=== PATIENT | female | born 1960 | race Caucasian/White ===

== ENCOUNTER → 2017-07-28 | Outpatient (CLI) | payer BC ==
[2014-11-25 10:21] VITALS: BP 124/62
--- NOTE | 2017-07-30 08:29 | MG ---
HISTORY: SCREENING Comparison: Multiple priors dating back to May 07, 2011 FINDINGS: Bilateral CC and MLO projections of the right and left breast were obtained. Scattered fibroglandula r tissue is seen to be present without significant interval change. No suspicious architectural dist ortion, mass or clustered microcalcifications can be observed to suggest malignancy. No skin thicken ing or nipple retraction is appreciated. No pathological lymphadenopathy can be identified. Benign- appearing calcifications are noted within the right and left breast. IMPRESSION: NO RADIOGRAPHIC EVIDENCE OF MALIGNANCY. ACR CATEGORY 2 - benign findings. FOLLOW-UP EXAM 1 YEAR. Diagnostic CAD was utilized and reviewed. * 0 (ZERO) - ASSESSMENT INCOMPLETE; ADDITIONAL IMAGING IS NEEDED. * 1/1 (ONE) - NEGATIVE. * 2/II (TWO) - BENIGN FINDINGS. * 3/III (THREE) - PROBABLY BENIGN FINDING; SHORT INTERVAL FOLLOW-UP SUGGESTED. * 4/IV (FOUR) - SUSPICIOUS ABNORMALITY; BIOPSY SHOULD BE CONSIDERED. * 5/V - HIGHLY SUSPICIOUS OF MALIGNANCY; BIOPSY SHOULD BE PERFORMED. A NEGATIVE X-RAY REPORT SHOULD NOT DELAY BIOPSY IF A DOMINANT OR CLINICALLY SUSPICIOUS MASS IS PRESENT; 4 TO 8 PERCENT OF CANCERS ARE NOT IDENTIFIED BY X-RAY. A NEGA TIVE REPORT MAY REINFORCE THE CLINICAL IMPRESSION. ADENOSIS AND DENSE BREASTS MAY OBSCURE AN UNDERLY ING NEOPLASM. Reported By:
== END ==
LOC: RAD 10:14
PROVIDERS: ATTEND Specialist
DX: Z12.31 Encounter for screening mammogram for malignant neoplasm of breast (principal)
CPT/HCPCS: 77067

== ENCOUNTER 2019-06-30 10:02 | Observation (INO) ==
[2019-06-30 10:19] VITALS: BMI 45.3
[2019-06-30] MEDS ORDERED: ASPIRIN PO ONE (10:50)
[2019-06-30] MEDS ORDERED: ASPIRIN 81 MG CHEWTAB ONE (10:53)
[2019-06-30] MEDS: ASPIRIN 81 MG CHEWTAB PO ONE (10:56)
--- NOTE | 2019-06-30 11:00 | DR.GENAD ---
HPI Time Seen Time Seen by Provider: 06/30/19 10:56 PCP Primary Care Physician: felton HPI Comment HPI Comment: PATIENT IS 58YR OLD WHITE FENALE IN THE EMERGENCY ROOM WITH CHEST PAIN. PAIN STARTED LAST NIGHT. PAIN ISSHARP, LAST NIGHT 9/10, NOW SORENESS AND RADIATED TO LEFT SHOULDER. PAIN WAS ASSOCIATED WITH SOB AND WEAKNESS. NO FEVER OR COUGH. PATIENT TOOK TOMS BUT NO RELIEF. PAIN SPONTANOUSLY EASE OFF WHEN SHE WENT TO SEE PCP. SHE WAS SENT TO ER FOR FURTHER EVALUATION. PATIENT HAVE HISTORY OF DM, HTN AND DYSLIPIDEMIA. SHE IS ALSO HAVING DYSURIA AND URINARY FRQUENCY. Complaint/Symptoms Chief Complaint Doctors Comments: CHEST PAIN. Chief Complaint:: patient stated she has been having left upper chest pain since last night. patient stated the pain was worse last night than today. went to pcp this morning was told to come here. also pt stated she thinks she has a uti Nurses notes reviewed Nurses Notes Review: Yes Source History Provided: Patient and Family Member Mode of Arrival Mode of Arrival: Ambulatory Timing Onset of Chief Complaint: 06/29/19 Came on: Suddenly Duration Duration: Intermittent Duration: Days Severity Severity: Moderate Modifying Factors Worsens:: MOVEMENT Improves:: REST Associated Signs and Symptoms Associated Signs and Symptoms: DYSURIA, URINARY FREQUENCY. Other History Other History: DIABETES. PMH PMH Past Medical History: Yes Past Medical History: Anxiety, Arthritis, Asthma, Depression, Diabetes, Dyslipidemia, GERD and Hypertension Past Surgical History: Yes Surgical History: Tonsillectomy Family History History of Family Medical Conditions: Yes Family Medical History: Diabetes Mellitus, Cancer, [place] and Hypertension Social History Does patient currently use any type of tobacco product: No Have you used tobacco products in the last 12 months: No Type of Tobacco Use: None Does any household member use tobacco: No Alcohol Use: None Do you use any recreational Drugs:: No Lives With: Family Lives Where: Home infectious screening In the last 2 months have you had wt loss of >10#?: NO Have you had fever, night sweats or hemotysis?: No Have you traveled outside the country in the last 6 months?: No Isolation: Standard ROS Review of Systems Constitutional: See HPI, Weakness and Fatigue; negative Chills and Fever Eyes: No Symptoms Reported and See HPI; negative Eye Pain, Blurred Vision, Discharge, Photophobia and Diplopia ENTM: No Symptoms Reported and See HPI; negative Ear Pain, Nose Discharge, Nose Congestion and Throat Pain Respiratoy: See HPI and Short of Breath; negative Moist Cough and Wheezing Cardiovascular: See HPI and Chest Pain; negative Edema and Palpitations Gastrointestinal/Abdominal: No Symptoms Reported and See HPI; negative Abdominal Pain, Constipation, Diarrhea, Nausea and Vomiting Genitourinary: See HPI and Frequency; negative Hematuria and Pain Neurological: See HPI and Weakness; negative Headache and Dizziness Musculoskeletal: No Symptoms Reported and See HPI; negative Back Pain and Muscle Pain Integumentary: No Symptoms Reported and See HPI; negative Change in Color, Rash and Juandice Hematologic/Lymphatic: No Symptoms Reported and See HPI; negative Easy Bleeding, Easy Bruising and Swollen Glands Endocrine: No Symptoms Reported and See HPI; negative Increased Thirst, Increased Urine and Decreased Appetite Psychiatric: No Symptoms Reported and See HPI All Other Systems: Reviewed and Negative PE Vital Signs Vitals: Temperature 98.7 F Pulse Rate 94 Respiratory Rate 18 Blood Pressure [Left Arm] 124/62 Blood Pressure [Right Arm] 112/52 Blood Pressure 138/62 O2 Sat by Pulse Oximetry 97 General Limitations: No Limitations General Appearance: Alert and In No Apparent Distress Head Head Exam: Normal Inspection, Atraumatic and Normocephalic Eyes Eye exam: Normal Appearance, PERRL and EOMI; negative Scleral Icterus and Conjunctival Injection ENT ENT Exam: Normal Exam, Normal Oropharynx, Normal External Ear Exam and TM's Normal Bilaterally External Ear Exam: Normal External Inspection; negative Mastoid Tenderness, Pain with Movement and External Tenderness TM/Canal Exam: Bilateral: Normal Nose Exam: Normal Nose Exam; negative Sinus Tenderness, Nasal Deviation and Septal Hematoma Mouth Exam: Normal Inspection; negative Lip Swelling and Tongue Swelling Throat Exam: Normal Inspection; negative Tonsillar Erythema, Tonsillomegaly and Tonsillar Exudate Neck Neck Exam: Normal Inspection and Trachea Midline; negative Tenderness and Lymphadenopathy Chest Chest Inspection: Normal Inspection and Symmetric Chest Wall Rise; negative Tenderness Respiratory Respiratory Exam: Normal Lung Sounds Bilat; negative Accessory Muscle Use, Chest Wall Tenderness and Respiratory Distress Respiratory Exam: Bilateral: Rhonchi and Lower: Rhonchi Cardiovascular Cardiovascular Exam: Regular Rate, Normal Rhythm and Normal Heart Sounds; negative Systolic Murmur and Diastolic Murmur Abdominal Exam Abdominal Exam: Normal Inspection, Normal Bowel Sounds and Soft; negative Tenderness Extremities Extremities Exam: Normal Inspection and Normal Capillary Refill; negative Tenderness, Edema and Calf Tenderness Back Back Exam: Normal Inspection; negative Tenderness, (R) CVA Tenderness, (L) CVA Tenderness, Paraspinal Tenderness and Vertebral Tenderness Neurologic Neurological Exam: Alert, Oriented X3 and CN II-XII Intact; negative Motor Sensory Deficit Psychiatric Psychiatric Exam: Normal Affect and Normal Mood Skin Skin Exam: Warm, Dry, Intact and Normal Color MDM Additional Information Additional Information Obtained From: Family Differential Diagnosis Differential Diagnosis: CHEST PAIN, GA, ANGINA, PNEUMONIA, PNEUMOTHORAX\, UTI. COURSE Treatment Treatment: SEE ORDERS. ASA 324MG CHEWABLE TABS PO IN ED. Consultation Consultation Comments: PATIENT DISCUSS WITH DR. MURILLO THROUGH HIS NURSE. HE WILL ADMIT PATIENT. ADMIT ORDERS, DONE. Education/Counseling Education/Counseling: Patient and Family Educated On: Diagnosis ROR Labs Reviewed Laboratory Results Reviewed?: Yes Result Diagrams: 06/30/19 11:02 06/30/19 11:02 Laboratory: WBC 5.7 X10^3/uL (3.6-10.0) 06/30/19 11:02 RBC 4.39 X10^6/uL (3.5-5.4) 06/30/19 11:02 Hgb 12.5 g/dL (12.0-16.0) 06/30/19 11:02 Hct 37.8 % (36.0-47.0) 06/30/19 11:02 MCV 86.2 fL (80.0-100.0) 06/30/19 11:02 MCH 28.6 pg (27.0-34.0) 06/30/19 11:02 MCHC 33.1 g/dL (33.0-35.0) 06/30/19 11:02 RDW 16.6 % (11.6-16.5) H 06/30/19 11:02 Plt Count 314 X10^3/uL (150.0-450.0) 06/30/19 11:02 MPV 9.7 fL (7.4-11.0) 06/30/19 11:02 Neut % (Auto) 63.5 % (42.0-75.0) 06/30/19 11:02 Lymph % (Auto) 30.2 % (21.0-51.0) 06/30/19 11:02 R[place] % (Auto) 3.9 % (0.0-13.0) 06/30/19 11:02 Eos % (Auto) 1.7 % (0.9-2.9) 06/30/19 11:02 Baso % (Auto) 0.7 % (0.2-1.0) 06/30/19 11:02 Neut # (Auto) 3.6 x10^3/uL (2.2-4.8) 06/30/19 11:02 Lymph # (Auto) 1.7 X10^3/uL (1.3-2.9) 06/30/19 11:02 R[place]els # (Auto) 0.2 x10^3/uL (0.3-0.8) L 06/30/19 11:02 Eos # (Auto) 0.1 x10^3/uL (0.0-0.2) 06/30/19 11:02 Baso # (Auto) 0.0 X10^3/uL (0.0-0.1) 06/30/19 11:02 Absolute Nucleated RBC 0.3 /100WBC 06/30/19 11:02 PT 13.9 SECONDS (11.8-14.3) 06/30/19 11:02 INR Target Range - 06/30/19 11:02 INR 1.11 (0.8-1.3) 06/30/19 11:02 APTT 29.4 SECONDS (22.9-36.5) 06/30/19 11:02 PTT Comment - 06/30/19 11:02 D-Dimer < 100 ng/mL (0-400) 06/30/19 11:02 Sodium 137 mmol/L (136-145) 06/30/19 11:02 Corrected Sodium 140 mmol/L (136-145) 06/30/19 11:02 Potassium 4.2 mmol/L (3.5-5.1) 06/30/19 11:02 Chloride 101 mmol/L (98-107) 06/30/19 11:02 Carbon Dioxide 28.6 mmol/L (21-32) 06/30/19 11:02 BUN 18 mg/dL (7-18) 06/30/19 11:02 Creatinine 0.71 mg/dL (0.55-1.02) 06/30/19 11:02 Est GFR (MDRD) Af Amer > 60 (>60) 06/30/19 11:02 Est GFR (MDRD) Non-Af > 60 (>60) 06/30/19 11:02 Glucose 217 mg/dL (65-99) H 06/30/19 11:02 Calcium 8.9 mg/dL (8.5-10.1) 06/30/19 11:02 Corrected Calcium TNP 06/30/19 11:02 Magnesium 1.9 mg/dL (1.7-2.9) 06/30/19 11:02 Total Bilirubin 0.60 mg/dL (0.2-1.0) 06/30/19 11:02 AST 15 Units/L (15-37) 06/30/19 11:02 ALT 17 Units/L (12-78) 06/30/19 11:02 Alkaline Phosphatase 62 Units/L (46-116) 06/30/19 11:02 Creatine Kinase 136 Units/L (26-192) 06/30/19 11:02 CK-MB (CK-2) 1.5 ng/mL (0-4.0) 06/30/19 11:02 CK/CKMB % Calc 1.1 % (<4) 06/30/19 11:02 Troponin I < 0.02 ng/mL (0-1.5) 06/30/19 11:02 Total Protein 7.3 g/dL (6.4-8.2) 06/30/19 11:02 Albumin 3.8 g/dL (3.4-5.0) 06/30/19 11:02 Globulin 3.5 g/dL (2.5-4.5) 06/30/19 11:02 Albumin/Globulin Ratio 1.1 Ratio (1.1-2.1) 06/30/19 11:02 Specimen Type Clean catch urine 06/30/19 11:33 Urine Color Straw (YELLOW) 06/30/19 11:33 Urine Appearance Clear (CLEAR) 06/30/19 11:33 Urine pH 5.0 (5.0 - 8.0) 06/30/19 11:33 Ur Specific [place] 1.005 (1.000-1.030) 06/30/19 11:33 Urine Protein Negative (NEGATIVE) 06/30/19 11:33 Urine Glucose (UA) Negative (NEGATIVE) 06/30/19 11:33 Urine Ketones Negative (NEGATIVE) 06/30/19 11:33 Urine Occult Blood Negative (NEGATIVE) 06/30/19 11:33 Urine Nitrite Negative (NEGATIVE) 06/30/19 11:33 Urine Bilirubin Negative (NEGATIVE) 06/30/19 11:33 Urine Urobilinogen Normal (NORMAL) 06/30/19 11:33 Ur Leukocyte Esterase Negative (NEGATIVE) 06/30/19 11:33 Acetone, Semi-Quant Negative (NEGATIVE) 06/30/19 11:02 XRAY XRAY Interpreted by: Radiologist XRAY Findings: REPORT NOTED AND DISCUSSED WITH PATIENT AND . EKG Rate: 90 [place]: Normal Rhythm: NSR Block: None Hypertrophy: None (LOW VOLTAGE PRECORDIAL LEADS.) ST: Nonsp Opioid Opioid Risk Tool Age (Darryl box if 16-45): No Total: 0 Total Score Risk Category: Low Risk Copyright: Winter LR predicting aberrant behaviors Diagnosis Discharge Problem: Acute hyperglycemia, Cystitis Chest pain Qualifiers: Chest pain type: precordial pain Qualified Code(s): R07.2 - Precordial pain Instructions Forms: Excuse From Work
[2019-06-30 11:09] LABS: BASOPHILS % (AUTO) 0.7 % (0.2-1.0); EOSINOPHILS # (AUTO) 0.1 x10^3/uL (0.0-0.2); EOSINOPHILS % (AUTO) 1.7 % (0.9-2.9); HEMATOCRIT 37.8 % (36.0-47.0); HEMOGLOBIN 12.5 g/dL (12.0-16.0); LYMPHOCYTES # (AUTO) 1.7 X10^3/uL (1.3-2.9); LYMPHOCYTES % (AUTO) 30.2 % (21.0-51.0); MEAN CORPUSCULAR HEMOGLOBIN 28.6 pg (27.0-34.0); MEAN CORPUSCULAR HGB CONC 33.1 g/dL (33.0-35.0); MEAN CORPUSCULAR VOLUME 86.2 fL (80.0-100.0); MEAN PLATELET VOLUME 9.7 fL (7.4-11.0); MONOCYTES # (AUTO) 0.2 x10^3/uL (0.3-0.8); MONOCYTES % (AUTO) 3.9 % (0.0-13.0); NEUTROPHILS # (AUTO) 3.6 x10^3/uL (2.2-4.8); NEUTROPHILS % (AUTO) 63.5 % (42.0-75.0); PLATELET COUNT 314 X10^3/uL (150.0-450.0); RED BLOOD COUNT 4.39 X10^6/uL (3.5-5.4); RED CELL DISTRIBUTION WIDTH 16.6 % (11.6-16.5); WHITE BLOOD COUNT 5.7 X10^3/uL (3.6-10.0)
--- NOTE | 2019-06-30 11:16 | RAD ---
History: Chest pain Study: Portable AP chest Comparison: November 23, 2014 Findings: The lungs are clear and the heart and mediastinum are unremarkable. There is no edema or effusion or congestion. No significant bony abnormality is demonstrated. Impression: No evidence for acute cardiopulmonary disease Reported By:
[2019-06-30 11:27] LABS: BLOOD UREA NITROGEN 18 mg/dL (7-18); CALCIUM 8.9 mg/dL (8.5-10.1); CARBON DIOXIDE 28.6 mmol/L (21-32); CHLORIDE 101 mmol/L (98-107); COR NA(FOR HYPERGLY) 140 mmol/L (136-145); CREATININE 0.71 mg/dL (0.55-1.02); SODIUM 137 mmol/L (136-145); TROPONIN I < 0.02 ng/mL (0-1.5); eGFR NON BLACK RACES > 60 (>60)
[2019-06-30 11:32] LABS: ALANINE AMINOTRANSFERASE 17 Units/L (12-78); ALBUMIN 3.8 g/dL (3.4-5.0); ALKALINE PHOSPHATASE 62 Units/L (46-116); ASPARTATE AMINO TRANSFERASE 15 Units/L (15-37); CKMB % 1.1 % (<4); CREATINE KINASE 136 Units/L (26-192); CREATINE KINASE MB 1.5 ng/mL (0-4.0); MAGNESIUM 1.9 mg/dL (1.7-2.9); TOTAL PROTEIN 7.3 g/dL (6.4-8.2)
[2019-06-30 11:44] LABS: BILIRUBIN,URINE NEGATIVE (NEGATIVE); BLOOD/HEMOGLOBIN,URINE NEGATIVE (NEGATIVE); GLUCOSE, URINE NEGATIVE (NEGATIVE); KETONES,URINE NEGATIVE (NEGATIVE); LEUKOCYTE ESTERASE ,URINE NEGATIVE (NEGATIVE); NITRITES,URINE NEGATIVE (NEGATIVE); PROTEIN,URINE NEGATIVE (NEGATIVE); UROBILINOGEN,URINE NORMAL (NORMAL)
[2019-06-30 11:49] LABS: APPEARANCE,URINE CLEAR (CLEAR); COLOR,URINE STRAW (YELLOW)
[2019-06-30] MEDS ORDERED: NITROGLYCERIN IV PREMIX 50 MG 50 MG/250 ML BAG IV PRN (14:04)
[2019-06-30] MEDS ORDERED: FLEXERIL TAB 10 MG PO PRN (15:07)
[2019-06-30] MEDS: NS 1000 ML 1,000 ML IV SCH (16:46)
[2019-06-30 17:45] LABS: CREATINE KINASE 112 Units/L (26-192); CREATINE KINASE MB 1.1 ng/mL (0-4.0); TROPONIN I < 0.02 ng/mL (0-1.5)
[2019-06-30] MEDS ORDERED: SNACK - Diabetic Appropriate PO SCH (20:00)
[2019-06-30] MEDS ORDERED: MORPHINE SULFATE INJ 2 MG INJ IVP PRN (20:45)
[2019-06-30] MEDS ORDERED: NITROSTAT SL PRN (20:45)
[2019-06-30] MEDS ORDERED: ZOCOR TAB 40 MG PO SCH (21:00)
[2019-06-30] MEDS: Atrovent NEB TX 0.02% IN SCH (21:43)
[2019-06-30] MEDS: PROTONIX TAB 40 MG PO SCH (22:40)
[2019-06-30] MEDS: GLUCOTROL PO SCH (22:41)
[2019-06-30] MEDS: MOTRIN TAB 800 MG PO SCH (22:41)
[2019-07-01 00:06] LABS: CKMB % 1.2 % (<4); CREATINE KINASE 102 Units/L (26-192); CREATINE KINASE MB 1.2 ng/mL (0-4.0); TROPONIN I < 0.02 ng/mL (0-1.5)
[2019-07-01 05:19] LABS: BASOPHILS % (AUTO) 0.8 % (0.2-1.0); EOSINOPHILS # (AUTO) 0.1 x10^3/uL (0.0-0.2); EOSINOPHILS % (AUTO) 1.9 % (0.9-2.9); HEMATOCRIT 34.8 % (36.0-47.0); HEMOGLOBIN 11.5 g/dL (12.0-16.0); LYMPHOCYTES # (AUTO) 1.9 X10^3/uL (1.3-2.9); LYMPHOCYTES % (AUTO) 33.9 % (21.0-51.0); MEAN CORPUSCULAR HEMOGLOBIN 28.3 pg (27.0-34.0); MEAN CORPUSCULAR HGB CONC 32.9 g/dL (33.0-35.0); MEAN CORPUSCULAR VOLUME 85.9 fL (80.0-100.0); MONOCYTES # (AUTO) 0.3 x10^3/uL (0.3-0.8); MONOCYTES % (AUTO) 5.1 % (0.0-13.0); NEUTROPHILS # (AUTO) 3.4 x10^3/uL (2.2-4.8); NEUTROPHILS % (AUTO) 58.3 % (42.0-75.0); PLATELET COUNT 309 X10^3/uL (150.0-450.0); RED BLOOD COUNT 4.06 X10^6/uL (3.5-5.4); RED CELL DISTRIBUTION WIDTH 16.6 % (11.6-16.5); WHITE BLOOD COUNT 5.7 X10^3/uL (3.6-10.0)
[2019-07-01] MEDS: Atrovent NEB TX 0.02% IN SCH (05:22)
[2019-07-01] MEDS: NS 1000 ML 1,000 ML IV SCH (05:30)
[2019-07-01 05:34] LABS: ALANINE AMINOTRANSFERASE 15 Units/L (12-78); ALBUMIN 3.4 g/dL (3.4-5.0); ALKALINE PHOSPHATASE 55 Units/L (46-116); ASPARTATE AMINO TRANSFERASE 10 Units/L (15-37); BLOOD UREA NITROGEN 18 mg/dL (7-18); CALCIUM 8.3 mg/dL (8.5-10.1); CARBON DIOXIDE 28.2 mmol/L (21-32); CHLORIDE 102 mmol/L (98-107); CHOLESTEROL 129 mg/dL (0-200); COR NA(FOR HYPERGLY) 141 mmol/L (136-145); CREATININE 0.72 mg/dL (0.55-1.02); HDL CHOLESTEROL 32 mg/dL (40-60); SODIUM 138 mmol/L (136-145); TOTAL PROTEIN 6.7 g/dL (6.4-8.2); TRIGLYCERIDES 201 mg/dL (0-150); eGFR NON BLACK RACES > 60 (>60)
[2019-07-01] MEDS ORDERED: POTASSIUM CHLORIDE LIQ 20 MEQ UDC PO PRN (05:56)
[2019-07-01] MEDS ORDERED: K-DUR TAB 20 MEQ PO PRN (05:56)
[2019-07-01] MEDS ORDERED: K-RIDER 10 MEQ/NS 100 ML 10 MEQ/100 ML BAG IV PRN (05:56)
[2019-07-01] MEDS ORDERED: KLOR-CON PO PRN (05:56)
[2019-07-01] MEDS ORDERED: POTASSIUM CHL 40 MEQ/NS 0.45% 500 ML IV PRN (05:56)
[2019-07-01] MEDS ORDERED: POTASSIUM CHL 60 MEQ/NS 0.45% 500 ML IV PRN (05:56)
[2019-07-01] MEDS ORDERED: MICRO K EXTEN CAP 10 MEQ PO PRN (05:56)
[2019-07-01] MEDS: MOTRIN TAB 800 MG PO SCH (06:05)
[2019-07-01] MEDS ORDERED: NORVASC TAB 5 MG PO SCH (09:00)
[2019-07-01] MEDS ORDERED: ASPIRIN PO SCH (09:00)
[2019-07-01] MEDS ORDERED: COZAAR PO SCH (09:00)
[2019-07-01] MEDS ORDERED: PHARMACY CONSULT - DOSE _____ XX SCH (09:00)
[2019-07-01] MEDS ORDERED: SYNTHROID 88 mcg TAB PO SCH (09:00)
[2019-07-01] MEDS: PROTONIX TAB 40 MG PO SCH (09:19)
[2019-07-01] MEDS: GLUCOTROL PO SCH (09:20)
[2019-07-01 10:55] VITALS: BP 160/86
[2019-07-01] MEDS: ASPIRIN 81 MG CHEWTAB PO ONE (12:57)
== END 2019-07-01 12:50 | disposition home or self-care (01) ==
LOC: ER 10:12 → MED/SURG 10:12
PROVIDERS: ADMIT Internal Medicine; ATTEND Internal Medicine
DX: R06.02 Shortness of breath; N30.00 Acute cystitis without hematuria; R07.9 Chest pain, unspecified; I10 Essential (primary) hypertension; R73.9 Hyperglycemia, unspecified
CPT/HCPCS: 36415; 71010; 71045; 80053; 80061; 81003; 82009; 82550; 82553; 83735; 84484; 85025; 85378; 85610; 85730; 93005; 94640; 94760; 96365; 96372; 99284; A4222; G0378; J1817; J2270; J7030; J7644

== ENCOUNTER 2020-03-14 15:28 | Inpatient (IN) ==
[2020-03-14] MEDS ORDERED: NS 1000 ML 1,000 ML IV ONE (15:50)
[2020-03-14] MEDS ORDERED: ZOFRAN INJ 4 MG VIAL IVP ONE (15:50)
[2020-03-14] MEDS ORDERED: NS 1000 ML 1,000 ML ONE (15:51)
[2020-03-14] MEDS ORDERED: ZOFRAN INJ 4 MG VIAL ONE (15:51)
[2020-03-14 15:58] LABS: ABG BASE EXCESS 6.4 mmol/L (-2.0-2.0); ABG HCO3 30.5 mmol/L (22-26)
[2020-03-14 15:59] LABS: ABG ALLEN TEST POS
[2020-03-14 16:00] LABS: BASOPHILS % (AUTO) 0.3 % (0.2-1.0); HEMATOCRIT 36.6 % (36.0-47.0); HEMOGLOBIN 12.2 g/dL (12.0-16.0); LYMPHOCYTES # (AUTO) 0.8 X10^3/uL (1.3-2.9); LYMPHOCYTES % (AUTO) 14.8 % (21.0-51.0); MEAN CORPUSCULAR HGB CONC 33.4 g/dL (33.0-35.0); MEAN CORPUSCULAR VOLUME 83.9 fL (80.0-100.0); MEAN PLATELET VOLUME 9.1 fL (7.4-11.0); MONOCYTES # (AUTO) 0.2 x10^3/uL (0.3-0.8); MONOCYTES % (AUTO) 4.3 % (0.0-13.0); NEUTROPHILS # (AUTO) 4.5 x10^3/uL (2.2-4.8); NEUTROPHILS % (AUTO) 80.6 % (42.0-75.0); PLATELET COUNT 275 X10^3/uL (150.0-450.0); RED BLOOD COUNT 4.36 X10^6/uL (3.5-5.4); RED CELL DISTRIBUTION WIDTH 18.9 % (11.6-16.5); WHITE BLOOD COUNT 5.5 X10^3/uL (3.6-10.0)
[2020-03-14] MEDS ORDERED: DUONEB 0.5 MG/3 MG (3 mL) NEB ONE ×2 (16:04→17:00)
--- NOTE | 2020-03-14 16:05 | DR.SOBA ---
HPI Time Seen Time Seen by Provider: 03/14/20 16:04 Primary Care Physician Primary Care Physician: felton Complaints Chief Complaint Doctors Comments: A 59 y/o female presents with complain of SOB, fever and cough x 1 week. She had been tested for COVID-19 and was notified of positive status today. Chief Complaint:: pt has been short of breath for the past week and has been running fevers. pt was notified today that she was postive and her was positive for the covid 19 COVID-19 Coronavirus risk:travel/contact w/high risk person: Yes Has patient experienced Coronavirus symptoms: Yes Coronavirus symptoms experienced: Fever, Coughing and Shortness of Breath Reviewed Nurses Notes Reviewed: Yes Source History Provided: Patient Mode of Arrival Mode of Arrival: Ambulatory Timing Onset of Chief Complaint: 03/11/20 Context Onset:: At Rest PE Risk Factors:: None History of:: Anxiety Currently on:: Neither Prehospital Care:: None Modifying Factors Worsens:: Nothing Improves:: Rest Associated Signs and Symptoms Associated Signs and Symptoms: Fever and Cough PMH PMH Past Medical History: Yes Past Medical History: Anxiety, Arthritis, Asthma, Depression, Diabetes, Dyslipidemia, GERD and Hypertension Past Surgical History: Yes Surgical History: Tonsillectomy Family History History of Family Medical Conditions: Yes Family Medical History: Diabetes Mellitus, Cancer, [place] and Hypertension Social History Does patient currently use any type of tobacco product: No Have you used tobacco products in the last 12 months: No Type of Tobacco Use: None Does any household member use tobacco: No Alcohol Use: None Do you use any recreational Drugs:: No Lives With: Family Lives Where: Home Infectious screening In the last 2 months have you had wt loss of >10#?: NO Have you had fever, night sweats or hemotysis?: No Have you traveled outside the country in the last 6 months?: No Isolation: Droplet ROS Review of Systems Constitutional: Fever Eyes: No Symptoms Reported ENTM: No Symptoms Reported Respiratoy: Non-Productive Cough and Short of Breath Cardiovascular: No Symptoms Reported Gastrointestinal/Abdominal: No Symptoms Reported Genitourinary: No Symptoms Reported Neurological: No Symptoms Reported Musculoskeletal: No Symptoms Reported Integumentary: No Symptoms Reported Hematologic/Lymphatic: No Symptoms Reported Endocrine: No Symptoms Reported Psychiatric: No Symptoms Reported PE Vital Signs Vitals: Temperature 100.1 F Pulse Rate 98 Respiratory Rate 16 Blood Pressure [Left Arm] 160/86 Blood Pressure 121/58 O2 Sat by Pulse Oximetry 98 General Limitations: No Limitations General Appearance: Alert and In No Apparent Distress Head Head Exam: Normal Inspection, Atraumatic and Normocephalic Eyes Eye exam: Normal Appearance and EOMI ENT ENT Exam: Normal Exam, Normal Oropharynx, Normal External Ear Exam and Mucous Membranes Moist Neck Neck Exam: Normal Inspection, Full ROM and Trachea Midline Chest Chest Inspection: Normal Inspection and Symmetric Chest Wall Rise Respiratory Respiratory Exam: Normal Lung Sounds Bilat Cardiovascular Cardiovascular Exam: Regular Rate, Normal Rhythm, Normal Heart Sounds, +S1 and +S2 Abdominal Exam Abdominal Exam: Normal Inspection, Normal Bowel Sounds and Soft Extremities Extremities Exam: Normal Inspection and Full ROM Back Back Exam: Normal Inspection and Full ROM Neurologic Neurological Exam: Alert and Oriented X3 Psychiatric Psychiatric Exam: Normal Affect and Normal Mood Skin Skin Exam: Dry and Normal Color COURSE Reevaluation 1st: Improved Education/Counseling Education/Counseling: Patient, Education and Counseling Educated On: Treatment, Diagnosis, Prognosis and Needs for Follow Up ROR Labs Reviewed Laboratory Results Reviewed?: Yes Result Diagrams: 03/14/20 15:45 03/14/20 15:45 Laboratory: WBC 5.5 X10^3/uL (3.6-10.0) 03/14/20 15:45 RBC 4.36 X10^6/uL (3.5-5.4) 03/14/20 15:45 Hgb 12.2 g/dL (12.0-16.0) 03/14/20 15:45 Hct 36.6 % (36.0-47.0) 03/14/20 15:45 MCV 83.9 fL (80.0-100.0) 03/14/20 15:45 MCH 28.0 pg (27.0-34.0) 03/14/20 15:45 MCHC 33.4 g/dL (33.0-35.0) 03/14/20 15:45 RDW 18.9 % (11.6-16.5) H 03/14/20 15:45 Plt Count 275 X10^3/uL (150.0-450.0) 03/14/20 15:45 MPV 9.1 fL (7.4-11.0) 03/14/20 15:45 Neut % (Auto) 80.6 % (42.0-75.0) H 03/14/20 15:45 Lymph % (Auto) 14.8 % (21.0-51.0) L 03/14/20 15:45 Gregory % (Auto) 4.3 % (0.0-13.0) 03/14/20 15:45 Eos % (Auto) 0.0 % (0.9-2.9) L 03/14/20 15:45 Baso % (Auto) 0.3 % (0.2-1.0) 03/14/20 15:45 Neut # (Auto) 4.5 x10^3/uL (2.2-4.8) 03/14/20 15:45 Lymph # (Auto) 0.8 X10^3/uL (1.3-2.9) L 03/14/20 15:45 Gregory # (Auto) 0.2 x10^3/uL (0.3-0.8) L 03/14/20 15:45 Eos # (Auto) 0.0 x10^3/uL (0.0-0.2) 03/14/20 15:45 Baso # (Auto) 0.0 X10^3/uL (0.0-0.1) 03/14/20 15:45 Absolute Nucleated RBC 0.0 /100WBC 03/14/20 15:45 Sample Site Rrad 03/14/20 15:49 ABG pH 7.480 (7.35-7.45) H 03/14/20 15:49 ABG pCO2 41.0 mmHg (35.0-45.0) 03/14/20 15:49 ABG pO2 72.0 mmHg (80.0-100.0) L 03/14/20 15:49 ABG HCO3 30.5 mmol/L (22-26) H* 03/14/20 15:49 ABG O2 Saturation 95.0 % (90-100) 03/14/20 15:49 ABG Base Excess 6.4 mmol/L (-2.0-2.0) H 03/14/20 15:49 Robb Test Pos 03/14/20 15:49 A-a Gradient 26.0 mmHg 03/14/20 15:49 FiO2 21.0 03/14/20 15:49 Blood Gas Comments Pt juan manuel well elj 03/14/20 15:49 Sodium 131 mmol/L (136-145) L 03/14/20 15:45 Corrected Sodium 135 mmol/L (136-145) L 03/14/20 15:45 Potassium 3.9 mmol/L (3.5-5.1) 03/14/20 15:45 Chloride 94 mmol/L (98-107) L 03/14/20 15:45 Carbon Dioxide 31.3 mmol/L (21-32) 03/14/20 15:45 BUN 13 mg/dL (7-18) 03/14/20 15:45 Creatinine 0.81 mg/dL (0.55-1.02) 03/14/20 15:45 Est GFR (MDRD) Af Amer > 60 (>60) 03/14/20 15:45 Est GFR (MDRD) Non-Af > 60 (>60) 03/14/20 15:45 Glucose 285 mg/dL (65-99) H 03/14/20 15:45 Calcium 9.0 mg/dL (8.5-10.1) 03/14/20 15:45 Corrected Calcium TNP 03/14/20 15:45 Total Bilirubin 1.50 mg/dL (0.2-1.0) H 03/14/20 15:45 AST 21 Units/L (15-37) 03/14/20 15:45 ALT 22 Units/L (12-78) 03/14/20 15:45 Alkaline Phosphatase 79 Units/L (46-116) 03/14/20 15:45 Total Protein 8.0 g/dL (6.4-8.2) 03/14/20 15:45 Albumin 3.8 g/dL (3.4-5.0) 03/14/20 15:45 Globulin 4.2 g/dL (2.5-4.5) 03/14/20 15:45 Albumin/Globulin Ratio 0.9 Ratio (1.1-2.1) L 03/14/20 15:45 Opioid Opioid Risk Tool Age (Darryl box if 16-45): No History of Preadolescent Sexual Abuse: No Total: 0 Total Score Risk Category: Low Risk Copyright: Moy WEBB predicting aberrant behaviors Diagnosis Discharge Problem: COVID-19, Acute hyponatremia Pneumonia Qualifiers: Pneumonia type: due to unspecified organism Laterality: bilateral Lung location: unspecified part of lung Qualified Code(s): J18.9 - Pneumonia, unspecified organism Hyperlipidemia Qualifiers: Hyperlipidemia type: mixed hyperlipidemia Qualified Code(s): E78.2 - Mixed hyperlipidemia Hypothyroidism Qualifiers: Hypothyroidism type: acquired Qualified Code(s): E03.9 - Hypothyroidism, unspecified Diabetes type 2, controlled Qualifiers: Diabetes mellitus [facility] insulin use: without medical terminologist use Diabetes mellitus complication status: without complication Qualified Code(s): E11.9 - Type 2 diabetes mellitus without complications HTN (hypertension) Qualifiers: Hypertension type: essential hypertension Qualified Code(s): I10 - Essential (primary) hypertension ADDITIONAL NOTES Additional Notes Additional Notes: HISTORY +COVID PT /COUGH STUDY PA and lateral chest COMPARISON June 30, 2019 FINDINGS There is mild to moderate diffuse patchy airspace disease. The heart and mediastinum are unremarkable. There is no pleural effusion. There is no significant bony abnormality. IMPRESSION Diffuse patchy pulmonary infiltrates that may represent patchy bronchopneumonia Electronically signed by: IDRIS BULL (Mar 14, 2020 14:54:46)
[2020-03-14 16:12] LABS: ALANINE AMINOTRANSFERASE 22 Units/L (12-78); ALBUMIN 3.8 g/dL (3.4-5.0); ALKALINE PHOSPHATASE 79 Units/L (46-116); ASPARTATE AMINO TRANSFERASE 21 Units/L (15-37); BLOOD UREA NITROGEN 13 mg/dL (7-18); CARBON DIOXIDE 31.3 mmol/L (21-32); CHLORIDE 94 mmol/L (98-107); COR NA(FOR HYPERGLY) 135 mmol/L (136-145); CREATININE 0.81 mg/dL (0.55-1.02); SODIUM 131 mmol/L (136-145); eGFR NON BLACK RACES > 60 (>60)
[2020-03-14] MEDS ORDERED: ROCEPHIN VIAL 1 GRAM 1 G in NS 100 ML IV + SPIKE MINIBAG* 100 ML IV ONE (18:01)
[2020-03-14] MEDS ORDERED: NS 100 ML IV + SPIKE MINIBAG* 100 ML IV ONE (18:15)
[2020-03-14] MEDS ORDERED: ROCEPHIN VIAL 1 GRAM ONE (18:15)
[2020-03-14] MEDS ORDERED: HumaLOG SC PRN (19:25)
[2020-03-14] MEDS ORDERED: VENTOLIN or PROAIR HFA ONE (19:49)
[2020-03-14] MEDS: SNACK - Diabetic Appropriate PO SCH (20:40)
[2020-03-14] MEDS: VENTOLIN or PROAIR HFA IN PRN (20:50)
[2020-03-14] MEDS ORDERED: Atrovent NEB TX 0.02% IN SCH (21:00)
[2020-03-14] MEDS ORDERED: NS 1/2 1000 ML IV 1,000 ML IV ONE (21:22)
[2020-03-14] MEDS ORDERED: GLUCOPHAGE ONE (21:24)
[2020-03-14] MEDS: PROTONIX TAB 40 MG PO SCH (21:44)
[2020-03-14] MEDS: FLEXERIL TAB 10 MG PO PRN (21:44)
[2020-03-14] MEDS: GLUCOTROL PO SCH (21:44)
[2020-03-14] MEDS: ROBITUSSIN DM PO SCH (21:45)
[2020-03-14] MEDS: GLUCOPHAGE PO SCH (21:45)
[2020-03-14] MEDS: NS 1/2 1000 ML IV 1,000 ML IV SCH (21:45)
[2020-03-14] MEDS: CRESTOR TAB 10 MG PO SCH (21:45)
[2020-03-14] MEDS ORDERED: MOTRIN TAB 800 MG PO SCH (22:00)
[2020-03-14] MEDS: ZOSYN VIAL 4.5 GRAMS 4.5 G in NS 100 ML IV + SPIKE MINIBAG* 100 ML IV SCH (22:12)
[2020-03-14] MEDS: HumuLIN R SUBCUT PRN (22:14)
[2020-03-15] MEDS ORDERED: GLUCOPHAGE ONE ×2 (04:54→08:37)
[2020-03-15] MEDS ORDERED: NS 1/2 1000 ML IV 1,000 ML IV ONE (04:55)
[2020-03-15] MEDS: ZOSYN VIAL 4.5 GRAMS 4.5 G in NS 100 ML IV + SPIKE MINIBAG* 100 ML IV SCH (05:00)
[2020-03-15 05:13] LABS: BASOPHILS % (AUTO) 0.2 % (0.2-1.0); EOSINOPHILS % (AUTO) 0.1 % (0.9-2.9); HEMATOCRIT 32.5 % (36.0-47.0); HEMOGLOBIN 10.8 g/dL (12.0-16.0); LYMPHOCYTES # (AUTO) 1.1 X10^3/uL (1.3-2.9); LYMPHOCYTES % (AUTO) 22.9 % (21.0-51.0); MEAN CORPUSCULAR HEMOGLOBIN 28.4 pg (27.0-34.0); MEAN CORPUSCULAR HGB CONC 33.3 g/dL (33.0-35.0); MEAN CORPUSCULAR VOLUME 85.2 fL (80.0-100.0); MEAN PLATELET VOLUME 9.7 fL (7.4-11.0); MONOCYTES # (AUTO) 0.2 x10^3/uL (0.3-0.8); MONOCYTES % (AUTO) 5.2 % (0.0-13.0); NEUTROPHILS # (AUTO) 3.3 x10^3/uL (2.2-4.8); NEUTROPHILS % (AUTO) 71.6 % (42.0-75.0); PLATELET COUNT 222 X10^3/uL (150.0-450.0); RED BLOOD COUNT 3.81 X10^6/uL (3.5-5.4); RED CELL DISTRIBUTION WIDTH 18.5 % (11.6-16.5); WHITE BLOOD COUNT 4.6 X10^3/uL (3.6-10.0)
[2020-03-15] MEDS: NS 1/2 1000 ML IV 1,000 ML IV SCH ×4 (05:25→23:52)
[2020-03-15 05:27] LABS: ABG ALLEN TEST POS
[2020-03-15 05:28] LABS: ALANINE AMINOTRANSFERASE 17 Units/L (12-78); ALBUMIN 3.1 g/dL (3.4-5.0); ALKALINE PHOSPHATASE 64 Units/L (46-116); ASPARTATE AMINO TRANSFERASE 18 Units/L (15-37); BLOOD UREA NITROGEN 11 mg/dL (7-18); CARBON DIOXIDE 31.6 mmol/L (21-32); CHLORIDE 97 mmol/L (98-107); COR CA(FOR HYPOALB) 8.7 mg/dL (8.5-10.1); COR NA(FOR HYPERGLY) 138 mmol/L (136-145); CREATININE 0.78 mg/dL (0.55-1.02); LACTATE DEHYDROGENASE 325 Units/L (81-234); SODIUM 136 mmol/L (136-145); TOTAL PROTEIN 6.7 g/dL (6.4-8.2); eGFR NON BLACK RACES > 60 (>60)
[2020-03-15] MEDS ORDERED: SYNTHROID 88 mcg TAB PO SCH (06:00)
[2020-03-15] MEDS ORDERED: POTASSIUM CHLORIDE LIQ 20 MEQ UDC PO PRN (06:01)
[2020-03-15] MEDS ORDERED: MICRO K EXTEN CAP 10 MEQ PO PRN (06:01)
[2020-03-15] MEDS ORDERED: K-RIDER 10 MEQ/NS 100 ML 10 MEQ/100 ML BAG IV PRN (06:01)
[2020-03-15] MEDS ORDERED: MAGNESIUM SULFATE 1 GRAM/100 mL PREMIX 1 GM/100 ML BAG IV PRN (06:01)
[2020-03-15] MEDS ORDERED: POTASSIUM CHL 40 MEQ/NS 0.45% 500 ML IV PRN (06:01)
[2020-03-15] MEDS ORDERED: POTASSIUM CHL 60 MEQ/NS 0.45% 500 ML IV PRN (06:01)
[2020-03-15] MEDS ORDERED: KLOR-CON PO PRN (06:01)
[2020-03-15] MEDS: GLUCOTROL PO SCH ×2 (06:20→16:40)
[2020-03-15] MEDS: GLUCOPHAGE PO SCH ×2 (06:20→16:39)
[2020-03-15] MEDS: HumuLIN R SUBCUT PRN ×3 (06:20→20:38)
[2020-03-15 08:39] VITALS: BMI 44.9
[2020-03-15] MEDS: ZOFRAN INJ 4 MG VIAL IVP PRN ×2 (09:00→21:46)
[2020-03-15] MEDS: VENTOLIN or PROAIR HFA IN PRN ×2 (09:50→17:55)
[2020-03-15] MEDS: PROTONIX TAB 40 MG PO SCH ×2 (10:06→20:38)
[2020-03-15] MEDS: COZAAR PO SCH (10:08)
[2020-03-15] MEDS: HYDROCHLOROTHIAZIDE 25 MG TAB PO SCH (10:08)
[2020-03-15] MEDS: XANAX PO SCH (10:09)
[2020-03-15] MEDS: NORVASC TAB 5 MG PO SCH (10:09)
[2020-03-15] MEDS: ROBITUSSIN DM PO SCH ×4 (10:10→20:38)
[2020-03-15] MEDS: VSL#3 PO SCH (10:10)
[2020-03-15] MEDS ORDERED: REMDESIVIR (INVESTIGATIONAL DRUG GS-5734) 200 MG in NS 250 ML IV 250 ML IV ONE (10:15)
[2020-03-15] MEDS: LOVENOX INJ 40 MG SYR SC SCH (12:00)
[2020-03-15] MEDS: ZOSYN VIAL 4.5 GRAMS 4.5 G in NS 100 ML IV 100 ML IV SCH ×2 (14:30→21:05)
[2020-03-15] MEDS: LEVAQUIN PREMIX IV 750 MG 750 MG/150 ML BAG IV SCH (20:37)
[2020-03-15] MEDS: SNACK - Diabetic Appropriate PO SCH (20:37)
[2020-03-15] MEDS: CRESTOR TAB 10 MG PO SCH (20:37)
[2020-03-15] MEDS: FLEXERIL TAB 10 MG PO PRN (20:39)
[2020-03-16 05:13] LABS: BASOPHILS % (AUTO) 0.2 % (0.2-1.0); HEMATOCRIT 31.2 % (36.0-47.0); HEMOGLOBIN 10.4 g/dL (12.0-16.0); LYMPHOCYTES # (AUTO) 0.7 X10^3/uL (1.3-2.9); LYMPHOCYTES % (AUTO) 14.4 % (21.0-51.0); MEAN CORPUSCULAR HEMOGLOBIN 28.3 pg (27.0-34.0); MEAN CORPUSCULAR HGB CONC 33.2 g/dL (33.0-35.0); MEAN CORPUSCULAR VOLUME 85.1 fL (80.0-100.0); MEAN PLATELET VOLUME 9.7 fL (7.4-11.0); MONOCYTES # (AUTO) 0.2 x10^3/uL (0.3-0.8); MONOCYTES % (AUTO) 4.3 % (0.0-13.0); NEUTROPHILS % (AUTO) 81.1 % (42.0-75.0); PLATELET COUNT 222 X10^3/uL (150.0-450.0); RED BLOOD COUNT 3.66 X10^6/uL (3.5-5.4); RED CELL DISTRIBUTION WIDTH 18.6 % (11.6-16.5)
[2020-03-16] MEDS ORDERED: GLUCOPHAGE ONE ×2 (05:15→17:14)
[2020-03-16 05:29] LABS: ALANINE AMINOTRANSFERASE 14 Units/L (12-78); ALKALINE PHOSPHATASE 63 Units/L (46-116); ASPARTATE AMINO TRANSFERASE 15 Units/L (15-37); BLOOD UREA NITROGEN 9 mg/dL (7-18); CALCIUM 7.8 mg/dL (8.5-10.1); CARBON DIOXIDE 29.4 mmol/L (21-32); CHLORIDE 96 mmol/L (98-107); COR CA(FOR HYPOALB) 8.6 mg/dL (8.5-10.1); COR NA(FOR HYPERGLY) 137 mmol/L (136-145); CREATININE 0.76 mg/dL (0.55-1.02); LACTATE DEHYDROGENASE 368 Units/L (81-234); SODIUM 134 mmol/L (136-145); TOTAL PROTEIN 6.8 g/dL (6.4-8.2); eGFR NON BLACK RACES > 60 (>60)
[2020-03-16 05:38] LABS: ABG BASE EXCESS 5.6 mmol/L (-2.0-2.0)
[2020-03-16] MEDS: ZOSYN VIAL 4.5 GRAMS 4.5 G in NS 100 ML IV 100 ML IV SCH ×3 (05:38→21:01)
[2020-03-16] MEDS: GLUCOTROL PO SCH ×2 (05:38→17:17)
[2020-03-16] MEDS: SYNTHROID 125 mcg TAB PO SCH ×2 (05:38→17:18)
[2020-03-16 05:39] LABS: ABG HCO3 31.1 mmol/L (22-26)
[2020-03-16] MEDS: HumuLIN R SUBCUT PRN ×3 (05:39→21:45)
[2020-03-16] MEDS: GLUCOPHAGE PO SCH ×2 (06:00→17:17)
--- NOTE | 2020-03-16 06:20 | RAD ---
HISTORYSOBSTUDYCHEST, 1 [id number]/04/2020FINDINGSThe trachea is midline. The cardiac silhouette is unremarkable. Patchy bilateral pneumonic infiltrates are again noted. No pleural effusion or pneumothorax.. The bony thorax is unremarkable.IMPRESSIONBilateral patchy infiltrates suggestive of pneumonia, unchanged from 03/15/2020Electronically signed by: Inderjit Bruce (Mar 16, 2020 06:19:18)
[2020-03-16] MEDS: COZAAR PO SCH (08:15)
[2020-03-16] MEDS: HYDROCHLOROTHIAZIDE 25 MG TAB PO SCH (08:16)
[2020-03-16] MEDS: LOVENOX INJ 40 MG SYR SC SCH (08:16)
[2020-03-16] MEDS: NORVASC TAB 5 MG PO SCH (08:17)
[2020-03-16] MEDS: PROTONIX TAB 40 MG PO SCH ×2 (08:17→20:22)
[2020-03-16] MEDS: XANAX PO SCH (08:18)
[2020-03-16] MEDS: VSL#3 PO SCH (08:18)
[2020-03-16] MEDS: ROBITUSSIN DM PO SCH ×4 (08:18→20:22)
[2020-03-16] MEDS: K-DUR TAB 20 MEQ PO PRN (08:20)
[2020-03-16] MEDS: VENTOLIN or PROAIR HFA IN PRN ×3 (09:00→21:40)
[2020-03-16] MEDS ORDERED: SOLU-Medrol 125 MG VIAL IVP ONE (10:23)
[2020-03-16] MEDS ORDERED: CANDIDA ALBICANS SKIN TEST ID ONE (10:23)
[2020-03-16] MEDS ORDERED: APLISOL ID ONE (11:00)
[2020-03-16] MEDS: REMDESIVIR (INVESTIGATIONAL DRUG GS-5734) 100 MG in NS 250 ML IV 250 ML IV SCH (11:48)
[2020-03-16] MEDS: ACTEMRA 400 MG in NS 100 ML IV 80 ML IV SCH ×2 (14:36→20:21)
[2020-03-16] MEDS: SOLU-Medrol 40 MG VIAL IVP SCH ×2 (14:51→21:01)
[2020-03-16] MEDS: NS 1/2 1000 ML IV 1,000 ML IV SCH (19:38)
[2020-03-16] MEDS: SNACK - Diabetic Appropriate PO SCH (19:59)
[2020-03-16] MEDS ORDERED: NS 100 ML IV 100 ML IV ONE (20:10)
[2020-03-16] MEDS: CRESTOR TAB 10 MG PO SCH (20:22)
[2020-03-16] MEDS: LEVAQUIN PREMIX IV 750 MG 750 MG/150 ML BAG IV SCH (20:22)
[2020-03-16] MEDS ORDERED: NS 1/2 1000 ML IV 1,000 ML IV ONE (21:47)
[2020-03-17] MEDS: HumuLIN R SUBCUT PRN ×6 (00:22→22:09)
[2020-03-17] MEDS: NS 1/2 1000 ML IV 1,000 ML IV SCH ×3 (04:30→22:10)
[2020-03-17 05:31] LABS: BASOPHILS % (AUTO) 0.3 % (0.2-1.0); EOSINOPHILS % (AUTO) 0.1 % (0.9-2.9); HEMATOCRIT 33.8 % (36.0-47.0); HEMOGLOBIN 11.2 g/dL (12.0-16.0); LYMPHOCYTES # (AUTO) 0.6 X10^3/uL (1.3-2.9); LYMPHOCYTES % (AUTO) 14.8 % (21.0-51.0); MEAN CORPUSCULAR HEMOGLOBIN 28.1 pg (27.0-34.0); MEAN CORPUSCULAR HGB CONC 33.1 g/dL (33.0-35.0); MEAN CORPUSCULAR VOLUME 84.9 fL (80.0-100.0); MEAN PLATELET VOLUME 10.4 fL (7.4-11.0); MONOCYTES # (AUTO) 0.1 x10^3/uL (0.3-0.8); MONOCYTES % (AUTO) 2.8 % (0.0-13.0); NEUTROPHILS # (AUTO) 3.3 x10^3/uL (2.2-4.8); PLATELET COUNT 265 X10^3/uL (150.0-450.0); RED BLOOD COUNT 3.98 X10^6/uL (3.5-5.4); RED CELL DISTRIBUTION WIDTH 18.3 % (11.6-16.5)
[2020-03-17 05:38] LABS: ALANINE AMINOTRANSFERASE 16 Units/L (12-78); ALBUMIN 3.1 g/dL (3.4-5.0); ALKALINE PHOSPHATASE 62 Units/L (46-116); ASPARTATE AMINO TRANSFERASE 15 Units/L (15-37); BLOOD UREA NITROGEN 18 mg/dL (7-18); CALCIUM 8.4 mg/dL (8.5-10.1); CARBON DIOXIDE 29.7 mmol/L (21-32); CHLORIDE 97 mmol/L (98-107); COR CA(FOR HYPOALB) 9.1 mg/dL (8.5-10.1); COR NA(FOR HYPERGLY) 140 mmol/L (136-145); CREATININE 0.96 mg/dL (0.55-1.02); LACTATE DEHYDROGENASE 419 Units/L (81-234); SODIUM 134 mmol/L (136-145); TOTAL PROTEIN 7.4 g/dL (6.4-8.2); eGFR NON BLACK RACES > 60 (>60)
[2020-03-17 05:55] LABS: ABG BASE EXCESS 5.3 mmol/L (-2.0-2.0); ABG HCO3 29.9 mmol/L (22-26)
[2020-03-17 05:57] LABS: ABG ALLEN TEST POS
[2020-03-17] MEDS ORDERED: GLUCOPHAGE ONE ×2 (06:00→16:42)
[2020-03-17] MEDS: GLUCOPHAGE PO SCH ×2 (06:19→16:53)
[2020-03-17] MEDS: ZOSYN VIAL 4.5 GRAMS 4.5 G in NS 100 ML IV 100 ML IV SCH ×3 (06:19→22:10)
[2020-03-17] MEDS: GLUCOTROL PO SCH ×2 (06:20→16:52)
[2020-03-17] MEDS: SOLU-Medrol 40 MG VIAL IVP SCH ×3 (06:21→22:10)
[2020-03-17] MEDS: VENTOLIN or PROAIR HFA IN PRN ×3 (07:00→16:58)
--- NOTE | 2020-03-17 07:00 | RAD ---
HISTORYSOBSTUDYPortable AP [id number]/05/2020FINDINGSContinued normal heart size. The central pulmonary vessels are mildl y congested without monster pulmonary edema, segmental or lobar consolidation. No definite pneumothorax is identified. A diffuse bilateral interstitial process is still present in the lungs.IMPRESSIONAppa rent interval improvement in appearance of the lungs since 1 day prior. No new abnormality is demonst rated.Electronically signed by: MOHAMUD SWEET (Mar 17, 2020 06:59:07)
[2020-03-17] MEDS: XANAX PO SCH (08:45)
[2020-03-17] MEDS: ROBITUSSIN DM PO SCH ×4 (08:46→20:33)
[2020-03-17] MEDS: NORVASC TAB 5 MG PO SCH (08:47)
[2020-03-17] MEDS: VSL#3 PO SCH (08:47)
[2020-03-17] MEDS: COZAAR PO SCH (08:48)
[2020-03-17] MEDS: PROTONIX TAB 40 MG PO SCH ×2 (08:48→20:32)
[2020-03-17] MEDS: LOVENOX INJ 40 MG SYR SC SCH (08:48)
[2020-03-17] MEDS: HYDROCHLOROTHIAZIDE 25 MG TAB PO SCH (08:48)
[2020-03-17] MEDS: REMDESIVIR (INVESTIGATIONAL DRUG GS-5734) 100 MG in NS 250 ML IV 250 ML IV SCH (10:12)
[2020-03-17] MEDS: SYNTHROID 125 mcg TAB PO SCH (16:53)
[2020-03-17] MEDS ORDERED: NS 1/2 1000 ML IV 1,000 ML IV ONE (19:12)
[2020-03-17] MEDS: SNACK - Diabetic Appropriate PO SCH (19:48)
[2020-03-17] MEDS: CRESTOR TAB 10 MG PO SCH (20:31)
[2020-03-17] MEDS: LEVAQUIN PREMIX IV 750 MG 750 MG/150 ML BAG IV SCH (20:32)
[2020-03-18] MEDS: HumuLIN R SUBCUT PRN ×6 (00:19→20:24)
[2020-03-18 05:26] LABS: BASOPHILS % (AUTO) 0.2 % (0.2-1.0); HEMOGLOBIN 10.4 g/dL (12.0-16.0); LYMPHOCYTES # (AUTO) 0.6 X10^3/uL (1.3-2.9); LYMPHOCYTES % (AUTO) 12.3 % (21.0-51.0); MEAN CORPUSCULAR HEMOGLOBIN 28.5 pg (27.0-34.0); MEAN CORPUSCULAR HGB CONC 33.7 g/dL (33.0-35.0); MEAN CORPUSCULAR VOLUME 84.8 fL (80.0-100.0); MEAN PLATELET VOLUME 10.1 fL (7.4-11.0); MONOCYTES # (AUTO) 0.2 x10^3/uL (0.3-0.8); MONOCYTES % (AUTO) 4.2 % (0.0-13.0); NEUTROPHILS # (AUTO) 4.3 x10^3/uL (2.2-4.8); NEUTROPHILS % (AUTO) 83.3 % (42.0-75.0); PLATELET COUNT 281 X10^3/uL (150.0-450.0); RED BLOOD COUNT 3.66 X10^6/uL (3.5-5.4); RED CELL DISTRIBUTION WIDTH 18.7 % (11.6-16.5); WHITE BLOOD COUNT 5.2 X10^3/uL (3.6-10.0)
[2020-03-18 05:33] LABS: ABG ALLEN TEST POS; ABG BASE EXCESS 4.8 mmol/L (-2.0-2.0); ABG HCO3 29.9 mmol/L (22-26)
[2020-03-18 05:37] LABS: ALANINE AMINOTRANSFERASE 14 Units/L (12-78); ALKALINE PHOSPHATASE 54 Units/L (46-116); ASPARTATE AMINO TRANSFERASE 12 Units/L (15-37); BLOOD UREA NITROGEN 21 mg/dL (7-18); CALCIUM 8.2 mg/dL (8.5-10.1); CARBON DIOXIDE 30.6 mmol/L (21-32); CHLORIDE 98 mmol/L (98-107); COR NA(FOR HYPERGLY) 139 mmol/L (136-145); CREATININE 0.82 mg/dL (0.55-1.02); LACTATE DEHYDROGENASE 396 Units/L (81-234); SODIUM 134 mmol/L (136-145); TOTAL PROTEIN 6.8 g/dL (6.4-8.2); eGFR NON BLACK RACES > 60 (>60)
[2020-03-18] MEDS ORDERED: GLUCOPHAGE ONE ×2 (05:52→16:29)
[2020-03-18] MEDS: ZOSYN VIAL 4.5 GRAMS 4.5 G in NS 100 ML IV 100 ML IV SCH ×3 (06:24→21:12)
[2020-03-18] MEDS: GLUCOTROL PO SCH ×2 (06:24→16:30)
[2020-03-18] MEDS: SOLU-Medrol 40 MG VIAL IVP SCH ×3 (06:24→21:11)
[2020-03-18] MEDS: GLUCOPHAGE PO SCH ×2 (06:24→16:30)
[2020-03-18] MEDS: NS 1/2 1000 ML IV 1,000 ML IV SCH ×3 (07:47→21:11)
[2020-03-18] MEDS: K-DUR TAB 20 MEQ PO PRN (07:56)
[2020-03-18] MEDS: VSL#3 PO SCH (08:08)
[2020-03-18] MEDS: PROTONIX TAB 40 MG PO SCH ×2 (08:08→20:33)
[2020-03-18] MEDS: COZAAR PO SCH (08:08)
[2020-03-18] MEDS: ROBITUSSIN DM PO SCH ×4 (08:09→20:34)
[2020-03-18] MEDS: LOVENOX INJ 40 MG SYR SC SCH (08:09)
[2020-03-18] MEDS: XANAX PO SCH (08:09)
[2020-03-18] MEDS: NORVASC TAB 5 MG PO SCH (08:09)
[2020-03-18] MEDS: HYDROCHLOROTHIAZIDE 25 MG TAB PO SCH (08:09)
[2020-03-18] MEDS: REMDESIVIR (INVESTIGATIONAL DRUG GS-5734) 100 MG in NS 250 ML IV 250 ML IV SCH (09:08)
[2020-03-18] MEDS: VENTOLIN or PROAIR HFA IN PRN ×3 (09:15→16:34)
[2020-03-18] MEDS: DIFLUCAN 200 MG IV PREMIX* 200 MG/100 ML BAG IV SCH (10:57)
[2020-03-18] MEDS ORDERED: NS 1/2 1000 ML IV 1,000 ML IV ONE (11:01)
[2020-03-18] MEDS: MYCOLOG-II CREAM TOP SCH ×3 (11:08→21:11)
[2020-03-18] MEDS: HumuLIN 70/30 (NovoLIN 70/30) SC SCH ×2 (11:08→20:32)
[2020-03-18] MEDS ORDERED: NS 100 ML IV + SPIKE MINIBAG* 100 ML IV ONE (12:24)
--- NOTE | 2020-03-18 15:21 | RAD ---
HISTORYSOBSTUDYCHEST, 1 VIEWCOMPARISONJune 2019FINDINGSThe patient is rotated. The cardiac silhouette is unremarkable. Peribronchial thickening and questionable patchy infiltrate are noted bilaterally.IMPRESSIONPeribronchial thickening with questionable patchy bilateral infiltrateElectronically signed by: GAVIN GONZALEZ (Mar 18, 2020 15:19:50)
[2020-03-18] MEDS: SYNTHROID 125 mcg TAB PO SCH (16:31)
[2020-03-18] MEDS: SNACK - Diabetic Appropriate PO SCH (19:38)
[2020-03-18] MEDS: CRESTOR TAB 10 MG PO SCH (20:31)
[2020-03-18] MEDS: LEVAQUIN PREMIX IV 750 MG 750 MG/150 ML BAG IV SCH (20:33)
[2020-03-19] MEDS ORDERED: NS 1/2 1000 ML IV 1,000 ML IV ONE ×2 (01:38→16:10)
[2020-03-19] MEDS: NS 1/2 1000 ML IV 1,000 ML IV SCH ×2 (02:00→16:08)
[2020-03-19 05:15] LABS: ABG ALLEN TEST POS; ABG BASE EXCESS 3.9 mmol/L (-2.0-2.0); ABG HCO3 28.5 mmol/L (22-26)
[2020-03-19] MEDS ORDERED: GLUCOPHAGE ONE ×2 (05:39→15:03)
[2020-03-19 05:47] LABS: BASOPHILS % (AUTO) 0.2 % (0.2-1.0); HEMATOCRIT 33.4 % (36.0-47.0); HEMOGLOBIN 11.2 g/dL (12.0-16.0); LYMPHOCYTES # (AUTO) 0.9 X10^3/uL (1.3-2.9); LYMPHOCYTES % (AUTO) 11.4 % (21.0-51.0); MEAN CORPUSCULAR HEMOGLOBIN 28.5 pg (27.0-34.0); MEAN CORPUSCULAR HGB CONC 33.5 g/dL (33.0-35.0); MEAN CORPUSCULAR VOLUME 84.9 fL (80.0-100.0); MEAN PLATELET VOLUME 9.6 fL (7.4-11.0); MONOCYTES # (AUTO) 0.3 x10^3/uL (0.3-0.8); MONOCYTES % (AUTO) 4.5 % (0.0-13.0); NEUTROPHILS # (AUTO) 6.5 x10^3/uL (2.2-4.8); NEUTROPHILS % (AUTO) 83.9 % (42.0-75.0); PLATELET COUNT 304 X10^3/uL (150.0-450.0); RED BLOOD COUNT 3.93 X10^6/uL (3.5-5.4); RED CELL DISTRIBUTION WIDTH 18.2 % (11.6-16.5); WHITE BLOOD COUNT 7.8 X10^3/uL (3.6-10.0)
[2020-03-19 06:10] LABS: ALANINE AMINOTRANSFERASE 16 Units/L (12-78); ALBUMIN 3.2 g/dL (3.4-5.0); ALKALINE PHOSPHATASE 54 Units/L (46-116); ASPARTATE AMINO TRANSFERASE 9 Units/L (15-37); BLOOD UREA NITROGEN 21 mg/dL (7-18); CALCIUM 8.4 mg/dL (8.5-10.1); CARBON DIOXIDE 29.4 mmol/L (21-32); CHLORIDE 99 mmol/L (98-107); COR NA(FOR HYPERGLY) 141 mmol/L (136-145); CREATININE 0.91 mg/dL (0.55-1.02); LACTATE DEHYDROGENASE 412 Units/L (81-234); SODIUM 136 mmol/L (136-145); TOTAL PROTEIN 6.8 g/dL (6.4-8.2); eGFR NON BLACK RACES > 60 (>60)
--- NOTE | 2020-03-19 06:23 | RAD ---
HISTORYShortness of breath, COVID-19 19STUDYCHEST, 1 [id number]/07/2020FINDINGSThe heart is within normal limits in size. The frank are normal. The lungs are mildly hypoinflated. No definite acute infiltrates are visualized on today's examination. No pleural effusions are identified. Bony thorax is unremarkable.IMPRESSIONLungs hypoinflated but free of acute infiltrates.Electronically signed by: MIRNA GILES (Mar 19, 2020 06:23:08)
[2020-03-19 06:26] LABS: BAND NEUTROPHILS % 2 % (0-10); PLATELET MORPHOLOGY COMMENT NORMAL (NORMAL)
[2020-03-19] MEDS: HumuLIN R SUBCUT PRN ×4 (06:30→23:39)
[2020-03-19] MEDS: MYCOLOG-II CREAM TOP SCH ×3 (06:39→22:00)
[2020-03-19] MEDS: SOLU-Medrol 40 MG VIAL IVP SCH ×3 (06:41→22:09)
[2020-03-19] MEDS: ZOSYN VIAL 4.5 GRAMS 4.5 G in NS 100 ML IV 100 ML IV SCH ×3 (06:41→22:09)
[2020-03-19] MEDS: GLUCOTROL PO SCH ×2 (06:42→16:07)
[2020-03-19] MEDS: GLUCOPHAGE PO SCH ×2 (06:44→16:07)
[2020-03-19] MEDS: DIFLUCAN 200 MG IV PREMIX* 200 MG/100 ML BAG IV SCH (09:03)
[2020-03-19] MEDS: LOVENOX INJ 40 MG SYR SC SCH (09:03)
[2020-03-19] MEDS: XANAX PO SCH (09:04)
[2020-03-19] MEDS: NORVASC TAB 5 MG PO SCH (09:04)
[2020-03-19] MEDS: PROTONIX TAB 40 MG PO SCH ×2 (09:04→22:06)
[2020-03-19] MEDS: COZAAR PO SCH (09:04)
[2020-03-19] MEDS: HYDROCHLOROTHIAZIDE 25 MG TAB PO SCH (09:04)
[2020-03-19] MEDS: ROBITUSSIN DM PO SCH ×4 (09:05→22:07)
[2020-03-19] MEDS: VSL#3 PO SCH (09:05)
[2020-03-19] MEDS: HumuLIN 70/30 (NovoLIN 70/30) SC SCH ×2 (09:05→23:31)
[2020-03-19] MEDS: REMDESIVIR (INVESTIGATIONAL DRUG GS-5734) 100 MG in NS 250 ML IV 250 ML IV SCH (09:06)
--- NOTE | 2020-03-19 10:30 | DR.H&P ---
H&P - History & Physical for Day of: H&P Date: 03/14/20 - Chief Complaint Chief Complaint: SOB, FEVER, DIZZINESS, HEADACHE, COUGH - History of Present Illness History of Present Illness: IS A 59 YEAR OLD PATIENT OF OURS WHO PRESENTED TO THE ER WITH COMPLAINTS OF SHORTNESS OF BREATH, FEVER, DIZZINESS, HEADACHE, AND A NON-PRODUCTIVE COUGH X 1 WEEK. SHE WAS TESTED FOR COVID-19 IN THE OFFICE. IT WAS REPORTED TODAY BEING POSITIVE. SHE REPORTS THAT HER IS ALSO POSITIVE FOR COVID-19. HER PMH INCLUDES: CHF, IBS, ANXIETY, ARTHRITIS, ASTHMA, DEPRESSION, DIABETES, DYSLIPIDEMIA, GERD, HTN, AND TONSILLECTOMY. EXAMINATION REVEALED DIMINISHED LUNG SOUNDS THROUGHOUT. ON ARRIVAL TO THE ER, VITALS WERE [id number]%RA-146/65. LABS WERE OBTAINED. ABNORMAL LAB VALUES INCLUDE THE FOLLOWING: SODIUM 131, CHLORIDE 94, GLUCOSE 285, TOTAL BILIRUBIN 1.50, LACTATE DEHYDROGENASE 893, CRP 63.50. AN ABG WAS OBTAINED AND REVEALED: PH 7.480, PC02 41.0, P02 72.0, HC03 30.5, 02 SATURATION 95.0, BASE EXCESS 6.4. BLOOD AND SPUTUM CULTURES WERE SET UP. A CHEST XRAY WAS OBTAINED YESTERDAY AND REVEALED: Diffuse patchy pulmonary infiltrates that may represent patchy bronchopneumonia. SHE WAS GIVEN A NORMAL SALINE BOLUS, ZOFRAN 4MG IV X 1, DUONEB X 1, ROCEPHIN 1G IV X 1. SHE DENIED IMPROVEMENT IN SYMPTOMS. SHE WAS ADMITTED FOR FURTHER EVALUATION AND TREATMENT OF COVID-19 AND PNEUMONIA. SHE WAS STARTED ON 1/2NS AT 75 ML/HR, ZOSYN 4.5G IV TID, PRO-AIR INHALER 2 PUFFS Q4H PRN, HUMULIN R SLIDIDING SCALE, LEVAQUIN 750MG IV EDAILY, ZOSYN 4.5G IV TID, ZOFRAN 4MG IV Q6H PRN, OTBS ACHS. WE WILL RESUME HER HOME MEDICATIONS TODAY. WE WILL ADMINISTER ACTEMRA 400MG IV X 1 DOSE, REMDESIVIR 200MG IV X 1, AND THEN START REMDESIVIR 100MG IV DAILY X 4 ADDITIONAL DAYS. OTHERWISE, WE PLAN TO FOLLOW UP WITH AM LABS AND CHEST XRAY AND CONTINUE TO MONITOR. - Past Medical History Past Medical History: Hypertension, Dyslipidemia, Diabetes, Depression, Anxiety, Asthma, GERD, Arthritis - Past Surgical History Surgical History: Tonsillectomy - Family History Family Medical History: Diabetes Mellitus, Cancer, MS, Hypertension - Social History Does patient currently use any type of tobacco product: No Have you used tobacco products in the last 12 months: No Type of Tobacco Use: None Does any household member use tobacco: No Alcohol Use: None Drug Use: None - Medications Home Medications: Sulfa (Sulfonamide Antibiotics) Adverse Reaction (Verified 06/30/19 10:13) CONTINUE taking the following medications alprazolam 0.25 mg PO DAILY 03/14/20 [History] hydrochlorothiazide 25 mg PO DAILY 03/14/20 [History] metformin 500 mg PO BID 03/14/20 [History] - Review of Systems Constitutional: See HPI, Fever, Chills, Weakness Eyes: No Symptoms Reported ENT: No Symptoms Reported Respiratory: See HPI, Cough, Shortness of Breath, SOB with Excertion Cardiovascular: Light Headedness Gastrointestinal: No Symptoms Reported Genitourinary: No Symptoms Reported Musculoskeletal: No Symptoms Reported Skin: No Symptoms Reported Neurological: See HPI, Weakness - Physical Exam Vital Signs: Temperature 98.2 F Pulse Rate [Left Brachial] 90 Pulse Rate 85 Respiratory Rate 22 Blood Pressure [Right Arm] 106/56 Blood Pressure [Left Arm] 157/70 Blood Pressure 121/58 O2 Sat by Pulse Oximetry 92 Oriented: Normal Eyes: Normal Ear: Normal Nose: Normal Throat: Normal Respiratory: Diminished Throughout Cardiovascular: Tachycardia : Normal Auscultation: Bowel Sounds: Normal Palpation: Normal Tenderness: Normal Skin: Normal Musculoskeletal: Normal Psychiatric: Normal Mood Description: Calm Affect: Normal Speech Pattern: Clear - Assessment/Plan (1) COVID-19 Status: Acute Plan: 1/2NS AT 75 ML/HR, ZOSYN 4.5G IV TID, PRO-AIR INHALER 2 PUFFS Q4H PRN, HUMULIN R SLIDIDING SCALE, LEVAQUIN 750MG IV EDAILY, ZOSYN 4.5G IV TID, ZOFRAN 4MG IV Q6H PRN, OTBS ACHS. WE WILL RESUME HER HOME MEDICATIONS TODAY. WE WILL ADMINISTER ACTEMRA 400MG IV X 1 DOSE, REMDESIVIR 200MG IV X 1, AND THEN START REMDESIVIR 100MG IV DAILY X 4 ADDITIONAL DAYS. ADMIT, (2) Pneumonia Qualifiers: Pneumonia type: due to unspecified organism Laterality: bilateral Lung location: unspecified part of lung Qualified Code(s): J18.9 - Pneumonia, unspecified organism Status: Acute (3) Acute hyponatremia Status: Acute (4) Diabetes type 2, controlled Qualifiers: Diabetes mellitus termite control representative insulin use: without termite control representative use Diabetes mellitus complication status: without complication Qualified Code(s): E11.9 - Type 2 diabetes mellitus without complications Status: Chronic (5) HTN (hypertension) Qualifiers: Hypertension type: essential hypertension Qualified Code(s): I10 - Essential (primary) hypertension Status: Chronic (6) Hyperlipidemia Qualifiers: Hyperlipidemia type: mixed hyperlipidemia Qualified Code(s): E78.2 - Mixed hyperlipidemia Status: Chronic (7) Hypothyroidism Qualifiers: Hypothyroidism type: acquired Qualified Code(s): E03.9 - Hypothyroidism, unspecified Status: Chronic (8) Depression Qualifiers: Depression Type: unspecified Qualified Code(s): F32.9 - Major depressive disorder, single episode, unspecified Status: Chronic - Allergies Allergies/Adverse Reactions: Allergies Allergy/AdvReac Type Severity Reaction Status Date / Time Sulfa (Sulfonamide AdvReac Verified 06/30/19 10:13 Antibiotics)
[2020-03-19] MEDS: VENTOLIN or PROAIR HFA IN PRN ×3 (12:00→20:00)
--- NOTE | 2020-03-19 13:52 | CT ---
HISTORYSOB, PNEUMONIA, COVID 19+STUDYCTA CHESTCOMPARISONNoneTECHNIQUEAxial images through the chest were performed after the administration of contrast 75 cc of Omnipaque 370 were administered. 3D M MPGR images were performed. CT scan was performed following ALARA (As low as Reasonably Achievable).Coronal and Sagittal reformatted images were performed.FINDINGSThe thyroid gland is not significant enlarged. There is no evidence of pulmonary embolism. No focal filling defects are present centrally. No axillary adenopathy. No pleural or pericardial effusions. There is pretracheal lymph nodes measuring approximately 9 millimeters in short axis. There is also a lymph node in the AP window measuring approximately 0.9 centimeters in short axis.No adrenal masses. The spleen is prominent measuring approximately 14 centimeters. The liver is also enlarged. However not totally included in the field of view. There is diffuse fatty liver.Lung windows there is extensive nodular ground-glass radiopacities with confluence in the right upper lobe, there is also seen in the right lower lobe and in the periphery and a lesser degree in the left lower lobe.Bone windows no evidence of aggressive bone lesions few anterior bridging osteophytes.IMPRESSIONNo radiographic evidence of pulmonary embolismExtensive nodular ground glass radiopacities with confluence in the right upper lobe and extending also in the right lower lobe and in the left lung in lesser degree considere vital pneumonia also in the differential vasculitis.Hepatosplenomegaly.Electronically signed by: Tigist Ruiz (Mar 19, 2020 13:50:31)
[2020-03-19] MEDS: SYNTHROID 125 mcg TAB PO SCH (16:07)
[2020-03-19] MEDS: SNACK - Diabetic Appropriate PO SCH (22:03)
[2020-03-19] MEDS: CRESTOR TAB 10 MG PO SCH (22:04)
[2020-03-19] MEDS: LEVAQUIN PREMIX IV 750 MG 750 MG/150 ML BAG IV SCH (22:05)
[2020-03-20 05:32] LABS: BASOPHILS % (AUTO) 0.3 % (0.2-1.0); EOSINOPHILS % (AUTO) 0.1 % (0.9-2.9); HEMATOCRIT 33.5 % (36.0-47.0); HEMOGLOBIN 11.2 g/dL (12.0-16.0); LYMPHOCYTES % (AUTO) 12.3 % (21.0-51.0); MEAN CORPUSCULAR HEMOGLOBIN 28.3 pg (27.0-34.0); MEAN CORPUSCULAR HGB CONC 33.4 g/dL (33.0-35.0); MEAN PLATELET VOLUME 10.1 fL (7.4-11.0); MONOCYTES # (AUTO) 0.3 x10^3/uL (0.3-0.8); MONOCYTES % (AUTO) 3.9 % (0.0-13.0); NEUTROPHILS # (AUTO) 6.8 x10^3/uL (2.2-4.8); NEUTROPHILS % (AUTO) 83.4 % (42.0-75.0); PLATELET COUNT 310 X10^3/uL (150.0-450.0); RED BLOOD COUNT 3.94 X10^6/uL (3.5-5.4); RED CELL DISTRIBUTION WIDTH 18.6 % (11.6-16.5); WHITE BLOOD COUNT 8.2 X10^3/uL (3.6-10.0)
[2020-03-20 05:45] LABS: ALANINE AMINOTRANSFERASE 11 Units/L (12-78); ALBUMIN 3.1 g/dL (3.4-5.0); ALKALINE PHOSPHATASE 51 Units/L (46-116); ASPARTATE AMINO TRANSFERASE 10 Units/L (15-37); BLOOD UREA NITROGEN 18 mg/dL (7-18); CALCIUM 8.1 mg/dL (8.5-10.1); CARBON DIOXIDE 29.3 mmol/L (21-32); CHLORIDE 98 mmol/L (98-107); COR CA(FOR HYPOALB) 8.8 mg/dL (8.5-10.1); COR NA(FOR HYPERGLY) 141 mmol/L (136-145); CREATININE 1.01 mg/dL (0.55-1.02); SODIUM 135 mmol/L (136-145); TOTAL PROTEIN 6.4 g/dL (6.4-8.2); eGFR NON BLACK RACES 60 (>60)
[2020-03-20 06:07] LABS: BAND NEUTROPHILS % 5 % (0-10); PLATELET MORPHOLOGY COMMENT NORMAL (NORMAL)
[2020-03-20] MEDS ORDERED: GLUCOPHAGE ONE (06:17)
[2020-03-20] MEDS: SOLU-Medrol 40 MG VIAL IVP SCH (06:22)
[2020-03-20] MEDS: GLUCOTROL PO SCH (06:22)
[2020-03-20] MEDS: MYCOLOG-II CREAM TOP SCH (06:22)
[2020-03-20] MEDS: GLUCOPHAGE PO SCH (06:23)
[2020-03-20] MEDS: ZOSYN VIAL 4.5 GRAMS 4.5 G in NS 100 ML IV 100 ML IV SCH (06:23)
[2020-03-20] MEDS: HumuLIN R SUBCUT PRN (06:24)
[2020-03-20] MEDS ORDERED: NS 1/2 1000 ML IV 1,000 ML IV ONE (06:42)
[2020-03-20] MEDS: COZAAR PO SCH (08:29)
[2020-03-20] MEDS: VSL#3 PO SCH (08:29)
[2020-03-20] MEDS: HumuLIN 70/30 (NovoLIN 70/30) SC SCH (08:30)
[2020-03-20] MEDS: DIFLUCAN 200 MG IV PREMIX* 200 MG/100 ML BAG IV SCH (08:30)
[2020-03-20] MEDS: NORVASC TAB 5 MG PO SCH (08:31)
[2020-03-20] MEDS: PROTONIX TAB 40 MG PO SCH (08:31)
[2020-03-20] MEDS: HYDROCHLOROTHIAZIDE 25 MG TAB PO SCH (08:31)
[2020-03-20] MEDS: LOVENOX INJ 40 MG SYR SC SCH (08:32)
[2020-03-20] MEDS: XANAX PO SCH (08:32)
[2020-03-20] MEDS: ROBITUSSIN DM PO SCH (08:32)
[2020-03-20 11:56] VITALS: BP 132/66
== END 2020-03-20 11:50 | disposition home or self-care (01) | DRG 177 ==
LOC: ER 15:28 → ICU 19:10
PROVIDERS: ADMIT Internal Medicine; ATTEND Internal Medicine
DX: E03.8 Other specified hypothyroidism; U07.1 COVID-19; R50.9 Fever, unspecified; R42 Dizziness and giddiness; E78.2 Mixed hyperlipidemia; K21.9 Gastro-esophageal reflux disease without esophagitis; I10 Essential (primary) hypertension; J12.89 Other viral pneumonia; E87.1 Hypo-osmolality and hyponatremia; E11.65 Type 2 diabetes mellitus with hyperglycemia; F32.89 Other specified depressive episodes; R06.02 Shortness of breath
CPT/HCPCS: 36415; 36600; 71010; 71045; 71275; 80053; 82728; 82803; 82947; 83615; 83735; 84443; 85025; 86140; 87040; 87070; 87205; 94640; 96365; 96374; 96375; 99285; A4222; J0696; J1450; J1650; J1815; J1956; J2405; J2543; J2920; J2930; J3262; J7030; J7050; J7620